=== PATIENT | male | born 1995 | race Caucasian/White ===

== ENCOUNTER 2016-09-10 17:05 | Emergency (ER) | payer OTHER ==
[~2016-09-10] VITALS: Ht 182.9 cm; Wt 90.9 kg
[2016-09-10 17:14] VITALS: BP 135/78; PULSE 76; RESP 16; O2SAT 98
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
[2016-09-10] MEDS ORDERED: IBUP800T28 PO (19:25)
[2016-09-10] MEDS ORDERED: CYCL10TA9 PO (19:26)
[2016-09-10 19:47] VITALS: BP 124/80; PULSE 82; RESP 20; O2SAT 97
== END 2016-09-10 19:45 | disposition home or self-care (01) ==
LOC: SED 17:05
DX: S16.1XXA Strain of muscle, fascia and tendon at neck level, initial encounter (principal); S20.211A Contusion of right front wall of thorax, initial encounter; V58.5XXA Driver of pick-up truck or van injured in noncollision transport accident in traffic accident, initial encounter; Y92.410 Unspecified street and highway as the place of occurrence of the external cause; Y93.89 Activity, other specified; Y99.0 Civilian activity done for income or pay
CPT/HCPCS: 96372; 99283; J1885